=== PATIENT | female | born 1970 | race Caucasian/White ===

== ENCOUNTER 2024-12-22 08:53 | Emergency (ER) | payer OTHER, SELFPAY ==
[2024-12-22 08:57] VITALS: BP 143/110
[2024-12-22 09:40] VITALS: BMI 21.4
--- NOTE | 2024-12-22 09:41 | ED.GENMED ---
History of Present Illness
General
Chief Complaint: Alcohol Problem
Source: patient
Exam Limitations: none
Time Seen by Provider: 12/22/24 09:27
Nursing documentation reviewed up to this point in time: agreed with
History of Present Illness
History of Present Illness:
pt is a54 y/o F
h/o alcohol abuse
had gone to rehab and was sober for 3 years, relapsed 3 years ago and was drinking several nights a week until about a month ago when she started drinking in the morning regularly
she would feel shaky and nauseated if she didn't have alcohol
pt says that 2 nights ago she decided to quit cold turkey because she knew it was getting out of hand
she had some nausea, no vomitnig, shakiness, some altered sensorium but no seizures
she feels she is through a lot of the withdrawal now but still anxious and shaky
she has not had any vomiting, abd pain
she feels unsteady and dehdyrated
she would like help with detox
Past History
Past History
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
ED Past Surgical History: Other (ENT (right prosthetic ossicles))
Patient has exhibited threatening behavior?: No
PSI?: Yes (pt verbally abusive toward staff)
Social History
Tobacco: Smoker
Alcohol: Daily
Drug: None
Personal:
Living: with family
Employment: Not employed
Family History
Family History: Adopted
Review of Systems
Review of Systems
Allergies reviewed?: Yes
All Other Systems: Not applicable
Phy Exam
Physical Exam
Physical Exam:
GENERAL: Alert , in no apparent distress
EYE: pupils equal and reactive
NECK: Supple
ENT: o/p clr, mmm.
CARDIAC: Regular rate and rhythm .
LUNGS: Clear breath sounds bilaterally, no acute respiratory distress, no wheezes/rales/rhonchi
ABDOMEN: Soft, without focal tenderness, no r/g, no cvat, normal bowel sounds
NEUROLOGICAL: Alert and oriented, no focal neuro deficits
tremor
SKIN: Warm and dry, skin intact.
MUSCULOSKELETAL: No edema, well perfused. neg suhail's sign
PSYCH: Normal and appropriate interaction. anxious
Scores
Withdrawal Assessment of Alcohol
Withdrawal Assessment Completed?: Yes
Nausea and Vomiting: Mild nausea with no vomiting
Tactile Disturbances: None
Tremor: Moderate, with patient's arms extended
Auditory Disturbances: Not present
Paroxysmal Sweats: No sweat visible
Visual Disturbances: Not present
Anxiety: Moderately anxious, or guarded, so anxiety is inferred
Headache, Fullness in Head: Very mild
Agitation: Normal activity
Orientation and clouding of sensorium: Oriented and can do serial additions
Total CIWA Score: 10
Alcohol Withdrawal Medication Recommendation: Equal to MSAS Score 5-7. Lorazepam 1mg IV or PO NOW & re-assess q2hrs
Course
Orders/Labs/Results
Orders:
Orders
12/22/24 09:39
Urinalysis Reflex To Culture Urgent
Date Specimen was Collected: 12/22/24
Time Specimen was Collected: 12:57
Urine Drug Abuse Screen Urgent
Date Specimen was Collected: 12/22/24
Time Specimen was Collected: 12:57
Lorazepam [Ativan] 1 mg IV NOW STA
Thiamine Injection 200 mg IV NOW STA
12/22/24 09:45
0.9% Sodium Chloride 1000 ml [Nss] 1,000 ml IV 1,000 mls/hr
12/22/24 10:16
Alcohol Urgent
Complete Blood Count/With Diff Urgent
Comprehensive Metabolic Panel Urgent
Magnesium Urgent
Phosphorus Urgent
Prothrombin Time Urgent
12/22/24 10:22
FOLic ACID [Folvite] 1 mg 0.9% Sodium Chloride 50 ml [Nss] 50 ml IV NOW
12/22/24 11:29
US Abdomen Complete/Upper Urgent
Comment:
Reason For Exam: alcohol abuse
12/22/24 13:04
Potassium Chloride Powder [Klor-Con] 20 meq PO NOW STA
12/22/24 13:09
Potassium Chloride [KCl] 40 meq PO NOW STA
Abnormal Lab Results
12/22/24
10:16
WBC 2.2 L* 10^3/uL
(4.8-10.8)
RBC 3.96 L 10^6/uL
(4.20-5.40)
MCH 33.6 H pg
(27.0-31.0)
MPV 10.6 H fL
(7.4-10.4)
Absolute Neuts (auto) 1.1 L 10^3/uL
(1.4-6.5)
Absolute Lymphs (auto) 0.7 L 10^3/uL
(1.2-3.4)
Monocytes % 10.2 H %
(1.7-9.3)
Potassium 3.3 L mmol/L
(3.5-5.1)
Chloride 94 L mmol/L
(98-107)
BUN 6 L mg/dl
(7-17)
Magnesium 1.5 L mg/dl
(1.6-2.3)
Total Bilirubin 2.6 H mg/dl
(0.2-1.3)
AST 85 H U/L
(14-36)
ALT 54 H U/L
(0-35)
12/22/24 10:16
12/22/24 10:16
Vital Signs
Initial and Last Documented VS:
Initial Vital Signs
Temp Pulse Resp BP Pulse Ox
36.9 C 80 18 143/110 100
12/22/24 08:57 12/22/24 08:57 12/22/24 08:57 12/22/24 08:57 12/22/24 08:57
Last Documented Vital Signs
Temp Pulse Resp BP Pulse Ox
36.8 C 91 15 122/85 97
12/22/24 10:00 12/22/24 11:30 12/22/24 11:30 12/22/24 11:00 12/22/24 10:00
MDM/Problems Addressed
Differential Diagnosis Includes:
alcohol withdrawal, detox,
MDM/Problems Addressed:
54 y/o F with h/o alcohol abuse
here with some residual sypmtoms from withdrawal, stopped drinking 2 days ago and having some anxiety and tremors and would like to disucss options for maintainng sobriety
she has not had
ED Attending Note
-
Portions of this chart may have been created with voice recognition software.� Occasional wrong word or��sound alike� substitutions may have occurred due to the inherent limitations of voice recognition software.
Discharge Plan
Departure
Patient Disposition: Home (Routine Discharge)
Date of Disposition: 12/22/24
Time of Disposition: 13:06
Patient with high blood pressure during this ER visit?: No
Condition: Fair
Covid-19: Not Applicable
Discharge Problem:
Alcohol withdrawal, Leukopenia, Fatty liver
Instructions: Alcohol Use Disorder (DC)
Prescriptions:
New
oxazepam 15 mg capsule
15 mg PO BID PRN (Reason: alcohol withdrawal) Qty: 10 0RF
folic acid 1 mg tablet
1 mg PO DAILY Qty: 5 0RF
No Action
Calcium
1 tab PO DAILY
Centrum Women Tablet
1 tab PO DAILY
Vitamin B Complex
1 tab PO DAILY
Vitamin D
1 tab PO DAILY
meclizine 25 MG tablet
25 mg PO Q8HPRN PRN (Reason: nausea or vertigo) Qty: 15 0RF
meclizine 25 MG tablet
25 mg PO TID PRN (Reason: vertigo ) Qty: 12 0RF
ondansetron 4 MG tablet,disintegrating
4 mg PO TIDPRN PRN (Reason: n/v)
diazepam 2 MG tablet
2 mg PO TIDPRN PRN (Reason: dizziness) Qty: 12 0RF
Referrals:
Mirtha Shell MD [Family Provider] -
Activity Restrictions/Additional Instructions:
YOUR BLOOD WORK SHOWED YOUR WHITE BLOOD CELL COUNT WAS MILDLY LOW
BE SURE TO HAVE THIS RECHECKED NEXT WEEK
IT COULD BE FROM A VIRUS BUT WE WOULD REFER YOU TO FLIGHT AGENT IF IT PERSISTED
TAKE SERAX TWICE A DAY NEEDED FOR WITHDRAWAL SIDE EFFECTS
YOU MAY NOT NEED IT FOR ALL 5 DAYS, YOU CAN STOP IN 2-3 DAYS NEEDED
IT WILL MAKE YOU SLEEPY DO NOT DRINK ALCOHOL WITH THIS!!
YOUR LIVER MARKERS ARE MILDLY HIGH AND YOU HAVE FATTY LIVER
EAT A MORE PROPER DIET
RETURN FO RANY CONCERNS.
Interventions
Interventions:
*Risk Screen - Suicide Last Done: 12/22/24 08:57
*General Assessment Last Done: 12/22/24 08:57
*Neglect/Abuse Screening Last Done: 12/22/24 09:40
*ED- Fall Risk Assessment Last Done: 12/22/24 08:57
*ED COVID-19 Vaccine History Last Done: 12/22/24 08:57
ED- Neurological Assessment Last Done: 12/22/24 09:40
ED-Psychological Assessment Last Done: 12/22/24 09:40
Discharge Date and Time
Print Language: ICELANDIC
[2024-12-22 10:00] VITALS: BP 134/99
--- NOTE | 2024-12-22 10:00 | EDRN ---
Received patient on stretcher. Patient stated that she needs help with drinking. Patient stated that she drinks 'a lot'. Patient stated that she drinks 10 beers or wine daily. Stated that her last drink was Friday. Patient stated that she is
interested in going to an intensive outpatient program and not really interested in going to an inpatient program. [facility] notified.
[2024-12-22] MEDS: NSS 1000 IV (10:09)
[2024-12-22] MEDS: ATIVAN 1 MG IV (10:23)
[2024-12-22] MEDS: THIAMINE INJECTION 200 MG IV (10:23)
[2024-12-22 10:34] LABS: INR 0.99; PT 13.6 Sec (11.4-14.6)
[2024-12-22] MEDS: FOLVITE 50.2 MG IV (10:45)
[2024-12-22 10:51] LABS: % Basophils 1.4 % (0-2); % Eosinophils 3.2 % (0-6); % Lymphocytes 33.5 % (20.5-51.1); % Monocytes 10.2 % (1.7-9.3); % Neutrophils 50.7 % (42.2-75.2); Absolute Eosinophils 0.1 10^3/uL (0-0.7); Absolute Lymphocytes 0.7 10^3/uL (1.2-3.4); Absolute Monocytes 0.2 10^3/uL (0.1-0.6); Absolute Neutrophils 1.1 10^3/uL (1.4-6.5); Hematocrit 37.5 % (37.0-47.0); Hemoglobin 13.1 g/dL (12.0-16.0); Mean Corp Hgb Conc. 34.6 g/dL (33.0-37.0); Mean Corpuscular Hgb 33.6 pg (27.0-31.0); Mean Platelet Volume 10.6 fL (7.4-10.4); Nucleated Red Blood Cells % 0 %; Platelet Count 141 10^3/uL (130-400); Red Blood Cell Count 3.96 10^6/uL (4.20-5.40); Red Cell Dist. Width 12.2 % (11.5-14.5); White Blood Cell Count 2.2 10^3/uL (4.8-10.8)
[2024-12-22 11:00] VITALS: BP 122/85
[2024-12-22 11:04] LABS: ALT (SGPT) 54 U/L (0-35); AST (SGOT) 85 U/L (14-36); Alkaline Phosphatase 65 U/L (38-126); Blood Urea Nitrogen 6 mg/dl (7-17); Calcium 9.9 mg/dl (8.4-10.2); Carbon Dioxide 30 mmol/L (22-30); Chloride 94 mmol/L (98-107); Glucose 98 mg/dl (70-99); Magnesium 1.5 mg/dl (1.6-2.3); Phosphorus 4.2 mg/dl (2.5-4.5); Potassium 3.3 mmol/L (3.5-5.1); Sodium 136 mmol/L (135-145); Total Bilirubin 2.6 mg/dl (0.2-1.3); Total Protein 7.7 g/dl (6.3-8.2); eGFR > 60.00
[2024-12-22] MEDS: NSS IV (11:39)
[2024-12-22 12:43] LABS: Estimated Creatinine Clearance 86 ml/min
[2024-12-22 13:00] VITALS: BP 128/89
[2024-12-22 13:14] LABS: Urine Albumin Negative (Neg - Trace); Urine Bilirubin Negative (Negative); Urine Character Clear (Clear); Urine Color Yellow; Urine Glucose Negative (Negative); Urine Ketone Negative (Negative); Urine Leukocyte Negative (Negative); Urine Nitrite Negative (Negative); Urine Occult Blood Negative (Negative); Urine Specific Gravity 1.005 (<1.030); Urine Urobilinogen Negative (Neg - 1+)
[2024-12-22] MEDS: KCL 40 MEQ PO (13:15)
--- NOTE | 2024-12-22 13:25 | EDRN ---
Reviewed discharge instructions with patient. Verbalized understanding. Ambulated with steady gait to the lobby.
[2024-12-22 13:26] VITALS: BP 128/89
[2024-12-22 13:26] LABS: Amphetamines Negative (Negative); Barbiturates Negative (Negative); Benzodiazepines Negative (Negative); Buprenorphine Negative (Negative); Cocaine Negative (Negative); Marijuana Negative (Negative); Methadone Negative (Negative); Methamphetamines Negative (Negative); Opiates Negative (Negative); Phencyclidine Negative (Negative); Tricyclic Antidepressants Negative (Negative)
== END 2024-12-22 13:25 | disposition home or self-care (01) ==
LOC: EMR 08:53
PROVIDERS: Physician Assistant; EMERGENCY PHYSICIAN Emergency Medicine; FAMILY PHYSICIAN Emergency Medicine
DX: F10.139 Alcohol abuse with withdrawal, unspecified (principal); D72.819 Decreased white blood cell count, unspecified; K76.0 Fatty (change of) liver, not elsewhere classified; F17.200 Nicotine dependence, unspecified, uncomplicated
CPT/HCPCS: 99284; 96365; 96375; 76700; 80053; 80306; 81003; 82077; 83735; 84100; 85025; 85610

== ENCOUNTER 2025-01-09 17:02 | Emergency (ER) | payer OTHER, SELFPAY ==
[2025-01-09 17:10] VITALS: BP 115/80
[2025-01-09 18:38] VITALS: BMI 22.7
--- NOTE | 2025-01-09 20:42 | ED.GENMED ---
History of Present Illness
General
Chief Complaint: Skin Problem
Source: patient
Exam Limitations: none
Time Seen by Provider: 01/09/25 19:32
Nursing documentation reviewed up to this point in time: agreed with
History of Present Illness
History of Present Illness:
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 Denies any systemic symptoms or fevers. Some radiation pain
to the left jaw.
Past History
Past History
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
ED Past Surgical History: Other (ENT (right prosthetic ossicles))
Patient has exhibited threatening behavior?: No
PSI?: Yes (pt verbally abusive toward staff)
Social History
Tobacco: Smoker
Alcohol: Daily
Drug: None
Personal:
Living: with family
Employment: Not employed
Family History
Family History: Adopted
Review of Systems
Review of Systems
Allergies reviewed?: Yes
All Other Systems: ROS reviewed and negative except as documented in HPI and ROS
Phy Exam
Physical Exam
Physical Exam:
GENERAL: Alert , in no apparent distress
EYE: pupils equal and reactive
NECK: Supple, no significant adenopathy.
ENT: Redness and swelling to the left cheek centimeter in diam noted tenderness palpation no visible swelling otherwise no significant lymphadenopathy. Normal posterior pharynx. o/p clr, mmm.
CARDIAC: Regular rate and rhythm .
LUNGS: Clear breath sounds bilaterally, no acute respiratory distress, no wheezes/rales/rhonchi
ABDOMEN: Soft, without focal tenderness, no r/g, no cvat
NEUROLOGICAL: Alert and oriented, no focal neuro deficits
SKIN: Warm and dry, skin intact.
MUSCULOSKELETAL: No edema, well perfused.
PSYCH: Normal and appropriate interaction.
Course
Vital Signs
Initial and Last Documented VS:
Initial Vital Signs
Temp Pulse Resp BP Pulse Ox
98.3 F 88 16 115/80 100
01/09/25 17:10 01/09/25 17:10 01/09/25 17:10 01/09/25 17:10 01/09/25 17:10
Last Documented Vital Signs
Temp Pulse Resp BP Pulse Ox
98.3 F 88 16 115/80 100
01/09/25 17:10 01/09/25 17:10 01/09/25 17:10 01/09/25 17:10 01/09/25 17:10
MDM/Problems Addressed
MDM/Problems Addressed:
54-year-old female presenting to the emergency department today with concerns of redness and swelling to the left cheek roughly 1 cm in diameter. No fluctuance or induration. Consistent with a small area of cellulitis. Plan to treat with
antibiotic otherwise stable for discharge. Return precautions given.
*Critical Care Note
Total Time (30-74mins, 75-104mins- exclusive of procedures): Not Applicable
ED Attending Note
-
Portions of this chart may have been created with voice recognition software.� Occasional wrong word or��sound alike� substitutions may have occurred due to the inherent limitations of voice recognition software.
Discharge Plan
Departure
Patient Disposition: Home (Routine Discharge)
Date of Disposition: 01/09/25
Time of Disposition: 20:48
Patient with high blood pressure during this ER visit?: No
Condition: Good
Covid-19: Not Applicable
Discharge Problem:
Cellulitis
Instructions: Cellulitis (Skin Infection), Adult (DC)
Prescriptions:
New
clindamycin HCl 150 mg capsule
450 mg PO TID 7 Days Qty: 63 0RF
No Action
Calcium
1 tab PO DAILY
Centrum Women Tablet
1 tab PO DAILY
Vitamin B Complex
1 tab PO DAILY
Vitamin D
1 tab PO DAILY
meclizine 25 MG tablet
25 mg PO Q8HPRN PRN (Reason: nausea or vertigo) Qty: 15 0RF
meclizine 25 MG tablet
25 mg PO TID PRN (Reason: vertigo ) Qty: 12 0RF
ondansetron 4 MG tablet,disintegrating
4 mg PO TIDPRN PRN (Reason: n/v)
diazepam 2 MG tablet
2 mg PO TIDPRN PRN (Reason: dizziness) Qty: 12 0RF
oxazepam 15 mg capsule
15 mg PO BID PRN (Reason: alcohol withdrawal) Qty: 10 0RF
folic acid 1 mg tablet
1 mg PO DAILY Qty: 5 0RF
oxazepam 15 mg capsule
15 mg PO BID PRN (Reason: alcohol withdrawal) Qty: 10 0RF
Referrals:
Mirtha Shell MD [Family Provider] -
Activity Restrictions/Additional Instructions:
You came to the emergency department today with concerns of a small infection to your left cheek area. Please take the prescribed clindamycin and follow-up closely with the primary care doctor. Return for any worsening, new or concerning symptoms.
Interventions
Interventions:
*Risk Screen - Suicide Last Done: 01/09/25 18:38
*General Assessment Last Done: 01/09/25 18:38
*Neglect/Abuse Screening Last Done: 01/09/25 18:38
*ED- Fall Risk Assessment Last Done: 01/09/25 18:38
*ED COVID-19 Vaccine History Last Done: 01/09/25 18:38
ED-Skin Assessment Last Done: 01/09/25 18:38
Discharge Date and Time
Print Language: FIJIAN
[2025-01-09] MEDS: CLEOCIN 450 MG PO (20:54)
== END 2025-01-09 20:57 | disposition home or self-care (01) ==
LOC: EMR 17:02
PROVIDERS: EMERGENCY PHYSICIAN Emergency Medicine; FAMILY PHYSICIAN Emergency Medicine
DX: L03.211 Cellulitis of face (principal); F41.9 Anxiety disorder, unspecified; F10.10 Alcohol abuse, uncomplicated; H91.91 Unspecified hearing loss, right ear; F17.200 Nicotine dependence, unspecified, uncomplicated
CPT/HCPCS: 99282

== ENCOUNTER → 2025-01-28 14:20 | Outpatient (REF) | payer OTHER, SELFPAY | LOC: WDC 14:20 | PROVIDERS: ATTENDING PHYSICIAN Emergency Medicine | DX: Z12.31 Encounter for screening mammogram for malignant neoplasm of breast (principal) | CPT/HCPCS: 77063; 77067 ==